=== PATIENT | male | born 1985 | race Caucasian/White ===

== ENCOUNTER 2023-05-11 09:55 | Emergency (ER) | payer SELFPAY ==
[2023-05-11 10:55] VITALS: BP 149/87; PULSE 80
== END 2023-05-11 10:53 | disposition home or self-care (01) ==
LOC: JD.ED 09:55
DX: H66.002 Acute suppurative otitis media without spontaneous rupture of ear drum, left ear (principal); H61.22 Impacted cerumen, left ear
CPT/HCPCS: 99282; 99283